=== PATIENT | male | born 1980 | race Asian ===

== ENCOUNTER 2018-05-23 19:45 | Outpatient (CLI) | payer OTHER | END 2018-05-23 19:49 | disposition short-term general hospital (02) | LOC: AMB 19:45 | DX: M54.5 Low back pain (principal); V89.2XXA Person injured in unspecified motor-vehicle accident, traffic, initial encounter; Y93.89 Activity, other specified; Y92.89 Other specified places as the place of occurrence of the external cause | CPT/HCPCS: A0425; A0427 ==

== ENCOUNTER 2018-05-23 19:59 | Emergency (ER) | payer OTHER ==
[~2018-05-23] VITALS: Ht 190.5 cm; Wt 97.1 kg
[2018-05-24 00:41] VITALS: BP 16120/6; TEMP 098.6
== END 2018-05-24 00:42 | disposition home or self-care (01) ==
LOC: ED 19:59
DX: S16.1XXA Strain of muscle, fascia and tendon at neck level, initial encounter (principal); S46.912A Strain of unspecified muscle, fascia and tendon at shoulder and upper arm level, left arm, initial encounter; S39.012A Strain of muscle, fascia and tendon of lower back, initial encounter; V64.5XXA Driver of heavy transport vehicle injured in collision with heavy transport vehicle or bus in traffic accident, initial encounter
CPT/HCPCS: 99283; J1885

== ENCOUNTER 2018-05-29 16:01 | Emergency (ER) | payer OTHER ==
[~2018-05-29] VITALS: Ht 190.5 cm; Wt 109.8 kg
[2018-05-29 18:21] VITALS: BP 135/89; TEMP 98.4
== END 2018-05-29 18:21 | disposition home or self-care (01) ==
LOC: ED 16:01
DX: S16.1XXA Strain of muscle, fascia and tendon at neck level, initial encounter (principal)
CPT/HCPCS: 99282

== ENCOUNTER 2020-10-19 15:56 | Outpatient (CLI) | payer BC | END 2020-10-19 18:00 | disposition home or self-care (01) | LOC: RAD 15:56 | PROVIDERS: ATTEND Nurse Practitioner Family | DX: R06.02 Shortness of breath (principal) ==